=== PATIENT | male | born 1940 | race Caucasian/White ===

== ENCOUNTER 2017-01-20 09:19 | Inpatient (IN) | payer MEDICARE, OTHER ==
[2017-01-20] MEDS ORDERED: NORMAL SALINE MINI-BAG+ 100 ML IV ONE (09:53)
[2017-01-20] MEDS ORDERED: NORMAL SALINE 2,000 ML IV ONE (09:53)
[2017-01-20] MEDS ORDERED: PIPERACILLIN /TAZO 3.375 GM/10 ML VIAL IV ONE (09:53)
[2017-01-20] MEDS ORDERED: ACETAMINOPHEN 325 MG TABLET PO ONE (09:54)
[2017-01-20 09:58] LABS: URINE MUCUS NONE SEEN (Up to 25%); URINE RBC NONE SEEN (0-5/hpf); URINE SQUAMOUS EPITHELIAL CELL NONE SEEN (<= 15/hpf)
[2017-01-20 10:01] LABS: BASOPHILS 0.1 % (0.0-2.0); HEMATOCRIT 47.3 % (42.0-54.0); HEMOGLOBIN 16.6 g/dL (14.0-18.0); LYMPHOCYTES 2.7 % (20.0-40.0); LYMPHOCYTES# 0.6 X 10^3uL (0.8-3.8); MEAN CELL VOLUME 86.9 fL (80.0-100.0); MEAN CORPUS. HGB CONCENTRATION 35.2 g/dL (32.0-36.0); MEAN CORPUSCULAR HEMOGLOBIN 30.5 pg (29.0-35.0); MEAN PLATELET VOLUME 11.3 fL (7.4-10.4); MONOCYTES 6.5 % (2.0-10.0); MONOCYTES# 1.6 X 10^3uL (0.2-1.0); NEUTROPHILS# 21.7 X 10^3uL (2.6-6.7); PLATELET COUNT 198 X 10^3uL (130-440); RED BLOOD COUNT 5.45 X 10^6uL (4.20-6.10); WHITE BLOOD COUNT 23.9 X 10^3uL (3.9-10.7)
[2017-01-20 10:09] LABS: URINE APPEARANCE SLIGHTLY CLOUDY; URINE BILIRUBIN NEGATIVE (NEGATIVE); URINE BLOOD TRACE (NEGATIVE); URINE COLOR YELLOW; URINE GLUCOSE NORMAL (NEGATIVE); URINE KETONE NEGATIVE (NEGATIVE); URINE LEUKOCYTE ESTERASE 25 WBC/uL (1+) (NEGATIVE); URINE NITRITE POSITIVE (NEGATIVE); URINE PROTEIN NEGATIVE (NEG - TRACE); URINE SPECIFIC GRAVITY 1.015 (0.001-1.035); URINE UROBILINOGEN 0.2mg/dL (Normal) (NEG-1mg/dL)
[2017-01-20 10:10] LABS: URINE BACTERIA >50 ORGANISMS/hpf (<10/hpf); URINE WBC 0-4/hpf (0-4/hpf)
[2017-01-20 10:14] LABS: ALBUMIN 4.2 g/dL (3.5-5.0); ALKALINE PHOSPHATASE 71 U/L (38-126); ALT 60 U/L (21-72); AST 46 U/L (17-59); BILIRUBIN, DIRECT 0.2 mg/dL (0.0-0.4); BILIRUBIN, TOTAL 1.2 mg/dL (0.2-1.3); BLOOD UREA NITROGEN 19 mg/dL (9-20); CALCIUM 9.2 mg/dL (8.4-10.2); CHLORIDE 100 mmol/L (98-107); EST GLOMERULAR FILTRATION RATE > 60 mL/min; GLUCOSE 110 mg/dL (70-100); SODIUM 138 mmol/L (137-145); TOTAL PROTEIN 7.4 g/dL (6.3-8.2)
[2017-01-20 10:17] LABS: NEUTROPHILS 90.7 % (54.0-75.0)
[2017-01-20] MEDS ORDERED: ACETAMINOPHEN 325 MG TABLET PO PRN (10:35)
[2017-01-20] MEDS ORDERED: MAG-AL PLUS XS SUSP 30 ML UDC PO PRN (10:35)
[2017-01-20] MEDS ORDERED: POLYETHYLENE GLYCOL 3350 17 GM POWD.PACK PO PRN (10:35)
[2017-01-20] MEDS ORDERED: HOME MEDICATION LIST NEEDED 1 EA EACH MC ONE (10:35)
--- NOTE | 2017-01-20 11:57 | ER PHYSICIAN DOCUMENTATION ---
Physician Documentation [facility] Name:Donaldo Walden Age:76 yrs Sex:Male :1940 Arrival Date:01/20/2017 Time:09:19 BedPortable Radiology Private MD:Tha Morales ED Mathew Gaitan Disposition: 01/20 10:03 Critical Care: not applicable. Chart complete. tl1 Disposition: 01/20/17 10:26 Admit ordered for Tha Morales. Preliminary diagnosis is Urosepsis. - Bed requested for Medical/Surgical. - Condition is Fair. - Problem is new. - Symptoms have improved. 23 HR OBS No HPI: 09:25 This 76 yrs old Male presents to ER with complaints of Altered Mental Status. tl1 09:25 The patient presents with confusion, decreased mental status, disorientation. Onset: tl1 The symptom(s)/episode began/occurred this morning. Possible causes: sepsis. Associated signs and symptoms: Pertinent negatives: abdominal pain, agitation, chest pain, diarrhea, headache, shortness of breath, vomiting. Current symptoms: In the emergency department the patient's symptoms are unchanged from the initial presentation. Patient's baseline: Neuro: alert and fully oriented, Motor: no deficits, Ambulation: walks without assistance, Speech: normal. 09:53 He is a poor historian and unable to describe any symptoms right now. He thinks it is tl1 November, and that the President is [facility]. He does not know the day of the week, and answers only occasional questions, with dubious reliability and consistency. History is mostly from his who says he had chills and felt cold all last night and that he has had UTIs in the past. He denies cough, urinary symptoms,abdominal pain, diarrhea or rash.. Historical: - Allergies: pravastatin; NSAIDS; - Home Meds: 1. Namenda XR 28 mg oral CSpX 1 cap once daily 2. fluocinolone 0.025 % topical oint 2 times per day for Skin Rash 3. tamsulosin 0.4 mg oral cp24 2 caps once daily 1/2 hour following the same meal each day 4. Ambien 5 mg oral tab 1 tab once daily for Sleep-Onset Insomnia 5. fluticasone propionate 6. multivitamin with minerals oral tab 7. ibuprofen 200 mg oral cap 1 cap every 4-6 hours as needed 8. pataday 9. Vitamin B-6 50 mg oral cap 10. calcium carbonate 600 mg oral lozg 11. Fish Oil oral cap 12. aspirin 81 mg oral tab 1 tab once daily - PMHx: erectile dysfunction; BPH; shoulder pain; colon polyps; HERNIA; nonallergic rhinitis; CAD; DEMENTIA; hyperlipidemia; OBESITY; - PSHx: left knee arthroscopy; Ventral Hernia repair; - Tetanus: < 10 years. - Ebola Screening: : Patient negative for fever greater than or equal to 101.5 degrees Fahrenheit, and additional compatible Ebola Virus Disease symptoms. Patient denies exposure to infectious person. Patient denies travel to an Ebola-affected area in the 21 days before illness onset. . - Immunization history: Pneumococcal vaccine is up to date, Flu Vaccine < 1 year. - Social history: Smoking status: Patient states former smoker of tobacco. ROS: 09:59 Constitutional: Positive for chills, fever, malaise. tl1 09:59 Neuro: Positive for altered mental status. 09:59 All other systems are negative. Exam: 10:01 Head/Face: Normocephalic, atraumatic. tl1 Eyes: Pupils equal round and reactive to light, extra-ocular motions intact. Lids and lashes normal. Conjunctiva and sclera are non-icteric and not injected. Cornea within normal limits. Periorbital areas with no swelling, redness, or edema. ENT: Nares patent. No nasal discharge, no septal abnormalities noted. Tympanic membranes are normal and external auditory canals are clear. Oropharynx with no redness, swelling, or masses, exudates, or evidence of obstruction, uvula midline. Mucous membranes moist. Neck: Trachea midline, no thyromegaly or masses palpated, and no cervical lymphadenopathy. Supple, full range of motion without nuchal rigidity, or vertebral point tenderness. No Meningismus. Cardiovascular: Regular rate and rhythm with a normal S1 and S2. No gallops, murmurs, or rubs. Normal PMI, no JVD. No pulse deficits. Respiratory: Lungs have equal breath sounds bilaterally, clear to auscultation and percussion. No rales, rhonchi or wheezes noted. No increased work of breathing, no retractions or nasal flaring. Abdomen/GI: Soft, non-tender, with normal bowel sounds. No distension or tympany. No guarding or rebound. No evidence of tenderness throughout. Skin: Warm, dry with normal turgor. Normal color with no rashes, no lesions, and no evidence of cellulitis. 10:01 MS/ Extremity: Pulses equal, no cyanosis. Neurovascular intact. Full, normal range tl1 of motion. 10:01 Constitutional: The patient appears in no acute distress, alert, awake, comfortable, non-toxic, well developed, well hydrated, well groomed, well nourished, incontinent of urine. 10:01 Neuro: Orientation: to person, Not oriented to place, time, situation, Mentation: slow to respond, Memory: immediate memory is impaired, Cranial nerves: grossly normal, Motor: moves all fours. 10:01 Psych: Behavior/mood is pleasant, cooperative, Affect is flat, Judgement / Insight is impaired. Recent memory is impaired. Vital Signs: 09:19 BP 143 / 70; Pulse 77; Resp 16; Temp 99.6(O); Pulse Ox 93% on R/A; Weight 99.79 kg; lp Height 70 in. (177.80 cm); Pain 0/10; 09:32 BP 132 / 65; Pulse 73; Resp 16; Pulse Ox 90% on R/A; lp 10:33 BP 104 / 64; Pulse 76; Resp 16; Pulse Ox 95% on R/A; lp 10:33 BP 104 / 64 (auto/); lp 10:34 Pulse 78 MON; Resp 24; Pulse Ox 95% ; lp 10:41 Temp 99.1(TE); lp 11:00 BP 112 / 59 (auto/); lp 11:04 Pulse 75 MON; Resp 24; Pulse Ox 95% ; lp 11:34 Pulse 71 MON; Resp 19; Pulse Ox 95% ; lp 11:37 BP 94 / 42 (auto/); lp 09:19 Body Mass Index 31.57 (99.79 kg, 177.80 cm) lp 11:37 MD notified lp MDM: 09:24 Patient medically screened. tl1 10:26 Data reviewed: and as a result, I will admit patient. Counseling: I had a detailed tl1 discussion with the patient and/or guardian regarding: the historical points, exam findings, and any diagnostic results supporting the discharge/admit diagnosis, lab results, radiology results, the need for further work-up and treatment in the hospital. ECG:. 10:42 EKG attached lp 01/20 10:10 Order name: UA W/ MICRO -CULTURE IF IND; Complete Time: 11:40 EDWY 01/20 10:32 Interpretation: Abnormal: URINE LEUKOCYTE ESTERASE 25 WBC/uL (1+); URINE NITRITE tl1 POSITIVE; URINE BLOOD TRACE. 01/20 10:18 Order name: CBC AUTO DIF, MDIF/RMOR IF IND; Complete Time: 11:40 EDWY 01/20 10:32 Interpretation: WHITE BLOOD COUNT 23.9; HEMOGLOBIN 16.6; HEMATOCRIT 47.3; MEAN PLATELET tl1 VOLUME 11.3; NEUTROPHILS 90.7; LYMPHOCYTES 2.7. 01/20 10:24 Order name: BASIC METABOLIC PANEL; Complete Time: 11:40 EDWY 01/20 10:33 Interpretation: Normal: SODIUM 138; POTASSIUM 4.0; CHLORIDE 100; CARBON DIOXIDE 26; tl1 GLUCOSE 110; BLOOD UREA NITROGEN 19; CREATININE 1.0. 01/20 10:24 Order name: HEPATIC PANEL; Complete Time: 11:40 EDWY 01/20 10:33 Interpretation: Normal: ALT 60; ALBUMIN 4.2; ALKALINE PHOSPHATASE 71; AST 46; tl1 BILIRUBIN, TOTAL 1.2; BILIRUBIN, DIRECT 0.2; TOTAL PROTEIN 7.4. 01/20 10:24 Order name: BNP,NT-PRO; Complete Time: 11:40 EDWY 01/20 10:33 Interpretation: Abnormal: BNP,NT-PRO 745. tl1 01/20 10:34 Order name: LACTATE; Complete Time: 11:41 EDWY 01/21 06:06 Order name: CBC AUTO DIF, MDIF/RMOR IF IND EDWY 01/21 06:14 Order name: BASIC METABOLIC PANEL EDWY 01/21 07:21 Order name: URINE CULTURE EDWY 01/21 10:21 Order name: BLOOD CULTURE EDWY 01/21 10:21 Order name: BLOOD CULTURE EDWY 01/22 06:54 Order name: UA W/ MICRO -CULTURE IF IND EDWY 01/22 08:53 Order name: NEGATIVE SENSITIVITY PANEL EDWY 01/20 09:58 Order name: CHEST; SINGLE VIEW [id number] EDWY 01/20 21:32 Order name: CHEST; SINGLE VIEW [id number] EDWY 01/20 09:27 Order name: I & O; Complete Time: :39 tl1 01/20 09:27 Order name: IV large bore X 2; Complete Time: :39 tl1 01/20 09:27 Order name: NPO; Complete Time: :39 tl1 01/20 09:27 Order name: Oxygen; Complete Time: :39 tl1 01/20 09:27 Order name: Place Patient On Monitor; Complete Time: :39 tl1 01/20 09:27 Order name: Pulse Ox Continuous; Complete Time: : tl1 01/20 09:27 Order name: 12-lead EKG; Complete Time: :52 tl1 EC:48 Rate is 74 beats/min. Rhythm is regular, Normal Sinus Rhythm. QRS [place] is Normal. QRS tl1 is negative in leads III, aVF, V1, V2. [place] interval is normal at 172 msec. QRS interval is prolonged at 105 msec. QT interval is normal at 387 msec. No Q waves. T waves are Normal. No ST changes noted. Clinical impression: NSR with borderline LAD, and RSR' in V1, V2 c/w right VCD or RVH. Interpreted by me. Reviewed by me. Dispensed Medications: : Drug: NS 0.9% 2000 ml; Route: IV; Rate: bolus; Site: left antecubital; lp 11:28 Follow up: Response: No adverse reaction; No change in condition; IV Status: Completed lp infusion; IV Intake: 2000ml 10:00 Drug: Acetaminophen 975 mg; Route: PO; lp 10:40 Follow up: Response: No adverse reaction; Temperature is decreased lp 10:20 Drug: Zosyn 3.375 grams; Route: IVPB; Site: left antecubital; lp 10:41 Follow up: Response: No adverse reaction; No change in condition; IV Status: Completed lp infusion; IV Intake: 100ml Point of Care Testing: Urine Dip: :52 pH: 6.5; ; Specific [place]: 1.020; Ketones: Negative; Glucose: Negative; Protein: lp Negative; Leukocytes: Positive; Nitrite: Positive (+) ; Blood: Non Hemolyzed Trace; Bilirubin: Negative ; Urobilinogen: Normal Signatures: Margo Robbins RN RN lp Leigh, Tom, MD MD tl1
--- NOTE | 2017-01-20 11:57 | ER NURSING DOCUMENTATION ---
Nurse's Notes [facility] Name:Donaldo Walden Age:76 yrs Sex:Male :1940 Ar[facility] Date:01/20/2017 [facility]09[facility] MD:Tha Morales Diagnosis:Urosepsis Presentation: 01/20 09:19 Notified ED Physician of Dr. Knapp notified. lp 09:21 Acuity: KYLIE 2 tg 09:55 Presenting complaint: Patient states: states patient is more confused and has been lp weak and incontinent of urine which is not baseline for patient. Transition of care: Home. 09:55 Method Of Arrival: EMS: 410 lp Triage Assessment: 09:50 General: Appears in no apparent distress, Behavior is appropriate for age, confused. lp Pain: Denies pain. EENT: No deficits noted. Neuro: No deficits noted. Level of Consciousness is awake, alert, confused, Oriented to person, Line Ordering Clinician are equal bilaterally Moves all extremities. Gait is unsteady. Cardiovascular: Capillary refill < 3 seconds Heart tones S1 S2. Respiratory: Airway is patent Breath sounds are clear bilaterally. GI: Abdomen is obese, Bowel sounds present X 4 quads. : Urine is cloudy. Derm: Skin is intact, is healthy with good turgor, Skin is dry, Skin is pink, Skin temperature is warm. Musculoskeletal: No deficits noted. Historical: - Allergies: pravastatin; NSAIDS; - Home Meds: 1. Namenda XR 28 mg oral CSpX 1 cap once daily 2. fluocinolone 0.025 % topical oint 2 times per day for Skin Rash 3. tamsulosin 0.4 mg oral cp24 2 caps once daily 1/2 hour following the same meal each day 4. Ambien 5 mg oral tab 1 tab once daily for Sleep-Onset Insomnia 5. fluticasone propionate 6. multivitamin with minerals oral tab 7. ibuprofen 200 mg oral cap 1 cap every 4-6 hours as needed 8. pataday 9. Vitamin B-6 50 mg oral cap 10. calcium carbonate 600 mg oral lozg 11. Fish Oil oral cap 12. aspirin 81 mg oral tab 1 tab once daily - PMHx: erectile dysfunction; BPH; shoulder pain; colon polyps; HERNIA; nonallergic rhinitis; CAD; DEMENTIA; hyperlipidemia; OBESITY; - PSHx: left knee arthroscopy; Ventral Hernia repair; - Tetanus: < 10 years. - Ebola Screening: : Patient negative for fever greater than or equal to 101.5 degrees Fahrenheit, and additional compatible Ebola Virus Disease symptoms. Patient denies exposure to infectious person. Patient denies travel to an Ebola-affected area in the 21 days before illness onset. . - Immunization history: Pneumococcal vaccine is up to date, Flu Vaccine < 1 year. - Social history: Smoking status: Patient states former smoker of tobacco. Screenin:27 Infectious Disease Risk None. Abuse screen: Denies threats or abuse. Denies injuries lp from another. Nutritional screening: No deficits noted. Assessment: 10:27 See Triage Assessment done by same RN. lp Vital Signs: 09:19 BP 143 / 70; Pulse 77; Resp 16; Temp 99.6(O); Pulse Ox 93% on R/A; Weight 99.79 kg; lp Height 70 in. (177.80 cm); Pain 0/10; 09:32 BP 132 / 65; Pulse 73; Resp 16; Pulse Ox 90% on R/A; lp 10:33 BP 104 / 64; Pulse 76; Resp 16; Pulse Ox 95% on R/A; lp 10:33 BP 104 / 64 (auto/); lp 10:34 Pulse 78 MON; Resp 24; Pulse Ox 95% ; lp 10:41 Temp 99.1(TE); lp 11:00 BP 112 / 59 (auto/); lp 11:04 Pulse 75 MON; Resp 24; Pulse Ox 95% ; lp 11:34 Pulse 71 MON; Resp 19; Pulse Ox 95% ; lp 11:37 BP 94 / 42 (auto/); lp 09:19 Body Mass Index 31.57 (99.79 kg, 177.80 cm) lp 11:37 MD notified lp ED Course: 09:20 Patient arrived in ED. natalya 09:21 Triage completed. tg 09:21 Margo Robbins, ARNOLD is Primary Nurse. lp 09:24 Mathew Knapp MD is Attending Physician. tl1 09:24 Tha Morales MD is Private Physician. natalya 09:50 Valuables Remains with patient Patient has correct armband on for positive lp identification. Placed in gown. Bed in low position. Call light in reach. Side rails up X 1. Adult w/ patient. Cardiac Monitoring On for Nurse Monitoring only. Pulse Ox - RN Monitoring Only NIBP On - RN Monitoring Only. Warm blanket given. Assisted with urinal. Cleaned of incontinence. 09:52 Missed attempts: 20 gauge X 2 in right antecubital area, Bleeding controlled, band aid tg applied, catheter tip intact. 09:58 CHEST; SINGLE VIEW [id number] In Process Unspecified. EDMS 10:03 Tha Morales MD is Admitting Physician. tl1 10:39 Inserted peripheral IV: 18 gauge in left antecubital area By EMS. lp 10:39 Inserted peripheral IV: 20 gauge in right forearm. lp 10:42 EKG attached lp Administered Medications: 09:52 Drug: NS 0.9% 2000 ml; Route: IV; Rate: bolus; Site: left antecubital; lp 11:28 Follow up: Response: No adverse reaction; No change in condition; IV Status: Completed lp infusion; IV Intake: 2000ml 10:00 Drug: Acetaminophen 975 mg; Route: PO; lp 10:40 Follow up: Response: No adverse reaction; Temperature is decreased lp 10:20 Drug: Zosyn 3.375 grams; Route: IVPB; Site: left antecubital; lp 10:41 Follow up: Response: No adverse reaction; No change in condition; IV Status: Completed lp infusion; IV Intake: 100ml Point of Care Testing: Urine Dip: 09:52 pH: 6.5; ; Specific [place]: 1.020; Ketones: Negative; Glucose: Negative; Protein: lp Negative; Leukocytes: Positive; Nitrite: Positive (+) ; Blood: Non Hemolyzed Trace; Bilirubin: Negative ; Urobilinogen: Normal Intake: 10:41 IV: 100ml; Total: 100ml. lp 11:28 IV: 2000ml; Total: 2100ml. lp Outcome: 10:26 Decision to Admit by Provider. tl1 11:55 Admitted to Med/surg accompanied by nurse, Other Report to Dre BARRETT lp 11:55 Condition: stable 11:55 Report given to Dre BARRETT on med-surg 11:55 Instructed on need to admit 11:56 Patient left the ED. lp Signatures: Dispatcher [facility] EDKY Phan Rodriguez RN RN tg Pavlish, Lena, RN RN lp Davies, Jackie, Reg Reg jd Abbott, Laura lea Leigh, Tom, [place] tl1
[2017-01-20] MEDS: NORMAL SALINE 1,000 ML IV SCH ×2 (12:15→17:30)
[2017-01-20] MEDS ORDERED: PIPERACILLIN /TAZO 2.25 GM/10 ML VIAL IV SCH (16:00)
[2017-01-20] MEDS: PIPERACILLIN /TAZO 3.375 GM in NORMAL SALINE MINI-BAG+ 100 ML IV SCH ×2 (16:12→21:49)
[2017-01-20] MEDS: IBUPROFEN 200 MG TABLET PO SCH ×2 (17:32→22:38)
--- NOTE | 2017-01-20 18:14 | RADIOLOGY REPORT ---
A limited single portable view of the chest is compared with prior examination dated 07/25/2011. The cardiac silhouette is enlarged but stable. The pulmonary vasculature is unremarkable. The lung titus are clear. IMPRESSION: Stable mild enlargement of the cardiac silhouette. MTDD
--- NOTE | 2017-01-20 18:14 | HISTORY & PHYSICAL ---
DATE OF ADMISSION: 01/20/17 ATTENDING PHYSICIAN: Tha Morales MD CHIEF COMPLAINT: Urinary tract infection. HISTORY OF PRESENT ILLNESS: Patient presented to the Emergency Room with a 1- day history of urinary tract symptoms consisting of dysuria, urinary frequency, nocturia that has increased from twice a night to 4 times per night, urgency, hesitancy, fevers, chills and dizziness. This morning, he felt quite weak trying to get out of bed and was noted to be quite confused according to his . No flank pain or abdominal pain. No nausea, vomiting, diarrhea, constipation, melena, hematochezia or cardiopulmonary symptoms. ALLERGIES: Pravastatin (myalgias). MEDICATIONS Namenda XR 28 mg p.o. daily. Fluocinolone 0.025% cream b.i.d. PRN. Ibuprofen 400 mg p.o. b.i.d. Fish oil 1000 mg p.o. daily. Cranberry 1 tab p.o. daily. Calcium carbonate 600 mg with vitamin D 400 International Units 2 tabs p.o. daily. Vitamin B6 1 tab p.o. daily. Pataday ophthalmic 1 gtt OU daily. Multivitamin 1 tab p.o. daily. Tamsulosin 0.4 mg 2 tabs p.o. daily. Ambien 5 mg p.o. q.h.s. PRN sleep. Fluticasone nasal inhaler 2 sprays each nostril daily. Aspirin 81 mg p.o. daily. PAST MEDICAL HISTORY 1. Bilateral hand dupuytrens contractures. 2. Ventral hernia repair 2013.. 3. Coronary artery disease diagnosed 2012 at time of a non-Q-wave myocardial infarction as noted on stress echocardiogram and nuclear stress test and followed by Physical Meteorologist Dr. Long. 4. Hyperlipidemia. 5. Colon polyps. 6. Dementia with last Mini-Mental Status Exam in 2009. 7. Benign prostatic hypertrophy. 8. Nonallergic rhinitis. 9. Obesity. 10. Hearings aids. 11. Erectile dysfunction. 12. Bilateral rotator cuff tear arthropathy 2013. 13. Left knee surgery 1971. 14. Left thigh injury surgery 1963. SOCIAL HISTORY: 2 children. 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 Quit smoking 1971. Social alcohol. FAMILY HISTORY: Mother at 101 of old age. Father at 72 of a bleeding esophageal ulcer. Brother at 42 of pneumonia secondary to a spinal cord tumor surgery. REVIEW OF SYSTEMS: No chest pain, chest pressure, chest tightness or other anginal symptoms. No lung, kidney stones or infections, liver, diabetes, thyroid , seizures, peptic ulcer disease, hypertension, skin, allergy or bleeding disorders. Nocturia x2 normally, but currently x4. PREVENTATIVE HEALTH: Pneumovax 2004. Prevnar 2014. Flu shot 06/22/16. PHYSICAL EXAMINATION VITAL SIGNS: Blood pressure 143/70, pulse 77, respiratory rate 16. Temperature 99.6. Room air pulse oxygen 93% on admission to the Emergency Room. GENERAL: Well-developed, well-nourished overweight male, NAD, alert and oriented x3. At the time of my exam he was not particularly confused, but he was quite confused per the ER physician. HEENT: EOMI. PERRLA. Normal conjunctivae. No coryza. Pharynx not injected. NECK: No lymphadenopathy. No thyromegaly. No carotid bruits. Neck supple. CHEST: Clear. No rales, rhonchi or wheezes. Good breath sounds and symmetry throughout. COR: RRR without murmurs, gallops, rubs or clicks. No jugular venous distention. No ectopy. ABDOMEN: Soft, nontender. No kidney tenderness. No hepatosplenomegaly. No masses. No bruits. No inguinal nodes. Bowel sounds present. No suprapubic tenderness on palpation. BACK: No CVA tenderness on percussion. LOWER EXTREMITIES: No edema. Good peripheral pulses. NEUROLOGIC: Nonfocal with good motor strength and normal cranial nerves. LABORATORY DATA: White blood cell count 23.9 with machine differential 90.7 neutrophils, 2.7% lymphocytes. Hemoglobin and hematocrit 16.6/47.3, platelets 198,000. Sodium 138, potassium 4.0, chloride 100, CO2 26, BUN 19, creatinine 1.0 , glucose 110, lactic acid 1.6, calcium 9.2, total bilirubin 1.2, direct bilirubin 0.2. AST 46, ALT 60, alkaline phosphatase 71. Pro-BNP 745, total protein 7.4, albumin 4.2. Urinalysis with specific gravity of 1.015, slightly cloudy, trace blood, positive nitrate, 1+ leukocyte esterase. Micro no RBC or WBCs, greater than 50 bacteria. ASSESSMENT: Urosepsis. PLAN 1. Zosyn 3.375 gram IV q.6 hours. 2. IV hydration with normal saline at 125 mL per hour. 3. Blood and urine cultures pending. 4. Recheck lab work in a.m. 5. Full code. MTDD
[2017-01-20] MEDS ORDERED: IBUPROFEN 400 MG TABLET PO SCH (21:00)
[2017-01-20] MEDS: ZOLPIDEM TARTRATE 5 MG TABLET PO SCH (21:10)
[2017-01-21] MEDS: NORMAL SALINE 1,000 ML IV SCH ×3 (02:00→15:13)
[2017-01-21] MEDS: PIPERACILLIN /TAZO 3.375 GM in NORMAL SALINE MINI-BAG+ 100 ML IV SCH ×4 (04:11→21:58)
[2017-01-21] MEDS: IBUPROFEN 200 MG TABLET PO SCH ×4 (05:38→22:04)
[2017-01-21 06:02] LABS: BASOPHIL# 0.1 X 10^3uL (0.0-0.1); BASOPHILS 0.7 % (0.0-2.0); EOSINOPHILS 0.8 % (0.0-6.0); EOSINOPHILS# 0.1 X 10^3uL (0.0-0.4); HEMATOCRIT 45.5 % (42.0-54.0); HEMOGLOBIN 14.6 g/dL (14.0-18.0); LYMPHOCYTES 5.1 % (20.0-40.0); LYMPHOCYTES# 0.9 X 10^3uL (0.8-3.8); MEAN CELL VOLUME 89.8 fL (80.0-100.0); MEAN CORPUS. HGB CONCENTRATION 32.1 g/dL (32.0-36.0); MEAN CORPUSCULAR HEMOGLOBIN 28.8 pg (29.0-35.0); MEAN PLATELET VOLUME 9.6 fL (7.4-10.4); MONOCYTES 7.1 % (2.0-10.0); MONOCYTES# 1.3 X 10^3uL (0.2-1.0); NEUTROPHILS# 15.5 X 10^3uL (2.6-6.7); PLATELET COUNT 140 X 10^3uL (130-440); RED BLOOD COUNT 5.07 X 10^6uL (4.20-6.10); RED CELL DISTRIBUTION WIDTH 14.5 % (11.5-14.5)
[2017-01-21 06:05] LABS: NEUTROPHILS 86.3 % (54.0-75.0); WHITE BLOOD COUNT 17.9 X 10^3uL (3.9-10.7)
[2017-01-21 06:10] LABS: BLOOD UREA NITROGEN 14 mg/dL (9-20); CALCIUM 8.2 mg/dL (8.4-10.2); CHLORIDE 110 mmol/L (98-107); CREATININE 0.9 mg/dL (0.7-1.3); EST GLOMERULAR FILTRATION RATE > 60 mL/min; GLUCOSE 115 mg/dL (70-100); POTASSIUM 3.7 mmol/L (3.5-5.1); SODIUM 141 mmol/L (137-145)
[2017-01-21] MEDS: MEMANTINE HCL XR 28 MG CAP PO SCH (08:36)
[2017-01-21] MEDS: TAMSULOSIN HCL 0.4 MG CAPSULE PO SCH (08:36)
[2017-01-21] MEDS: MULTIVITAMINS THERAPEUTIC 1 TABLET PO SCH (08:36)
[2017-01-21] MEDS ORDERED: POLYVINYL ALCOHOL 1.4% OPHTH 75 DROP/15 ML BTL OPHTHALMIC PRN (08:49)
--- NOTE | 2017-01-21 08:56 | PROGRESS NOTE: IM SOAP ---
IM: PN Subjective Interval history: Feeling better. Did have some intermittent confusion last night. No dysuria, frequency, flank pain. No chills. IM: PN Objective Exam - I&O/Vital Signs I&O: Intake & Output 01/20/17 01/21/17 01/21/17 21:59 05:59 13:59 Intake Total 1384 1225 Output Total 275 675 Balance 1109 550 Weight 100 kg Intake: IV 1084 1075 Left Antecubital 1084 1075 Oral 300 150 Output: Urine 275 675 Other: Urine Appearance Cloudy Cloudy Urine Color Straw Straw Stool Size Small Stool Characteristics Hard Voiding Method Toilet Toilet # Voids 3 1 # Bowel Movements 1 Vital Signs: Last Vital Signs Temp 36.3 C L 01/21/17 06:00 Pulse 54 L 01/21/17 06:00 Resp 20 01/21/17 06:00 BP 109/54 01/21/17 06:00 Pulse Ox 95 01/21/17 06:00 Oxygen Delivery Method Room Air - Respiratory Respiratory exam: Present: clear. Absent: rales - Cardiovascular Cardiovascular exam: Present: RRR. Absent: systolic murmur - GI/Abdominal GI/Abdominal exam: Present: normal bowel sounds, soft, other (No CVATon percussion.). Absent: organomegaly, tenderness - Extremities Exam Extremities exam: Absent: edema - Lab Labs: Laboratory Last Values WBC 17.9 X 10^3uL (3.9-10.7) H 01/21/17 05:50 RBC 5.07 X 10^6uL (4.20-6.10) 01/21/17 05:50 Hgb 14.6 g/dL (14.0-18.0) 01/21/17 05:50 Hct 45.5 % (42.0-54.0) 01/21/17 05:50 MCV 89.8 fL (80.0-100.0) 01/21/17 05:50 MCH 28.8 pg (29.0-35.0) L 01/21/17 05:50 MCHC 32.1 g/dL (32.0-36.0) 01/21/17 05:50 RDW 14.5 % (11.5-14.5) 01/21/17 05:50 Plt Count 140 X 10^3uL (130-440) 01/21/17 05:50 MPV 9.6 fL (7.4-10.4) 01/21/17 05:50 Neutrophils % 86.3 % (54.0-75.0) H 01/21/17 05:50 Lymphocytes % 5.1 % (20.0-40.0) L 01/21/17 05:50 Eosinophils % 0.8 % (0.0-6.0) 01/21/17 05:50 Basophils % 0.7 % (0.0-2.0) 01/21/17 05:50 Neutrophils # 15.5 X 10^3uL (2.6-6.7) H 01/21/17 05:50 Lymphocytes # 0.9 X 10^3uL (0.8-3.8) 01/21/17 05:50 Monocytes 7.1 % (2.0-10.0) 01/21/17 05:50 Monocytes # 1.3 X 10^3uL (0.2-1.0) H 01/21/17 05:50 Eosinophils # 0.1 X 10^3uL (0.0-0.4) 01/21/17 05:50 Basophils # 0.1 X 10^3uL (0.0-0.1) 01/21/17 05:50 Sodium 141 mmol/L (137-145) 01/21/17 05:50 Potassium 3.7 mmol/L (3.5-5.1) 01/21/17 05:50 Chloride 110 mmol/L (98-107) H 01/21/17 05:50 Carbon Dioxide 23 mmol/L (22-30) 01/21/17 05:50 BUN 14 mg/dL (9-20) 01/21/17 05:50 Creatinine 0.9 mg/dL (0.7-1.3) 01/21/17 05:50 GFR Calculation > 60 mL/min 01/21/17 05:50 Glucose 115 mg/dL (70-100) H 01/21/17 05:50 Lactic Acid 1.6 mmol/L (0.7-2.1) 01/20/17 10:15 Calcium 8.2 mg/dL (8.4-10.2) L 01/21/17 05:50 Total Bilirubin 1.2 mg/dL (0.2-1.3) 01/20/17 09:30 Direct Bilirubin 0.2 mg/dL (0.0-0.4) 01/20/17 09:30 AST 46 U/L (17-59) 01/20/17 09:30 ALT 60 U/L (21-72) 01/20/17 09:30 Alkaline Phosphatase 71 U/L (38-126) 01/20/17 09:30 NT-Pro-B Natriuret Pep 745 pg/mL (<450) H 01/20/17 09:30 Total Protein 7.4 g/dL (6.3-8.2) 01/20/17:30 Albumin 4.2 g/dL (3.5-5.0) 01/20/17:30 Urine Color Yellow 01/20/17:30 Urine Appearance Slightly cloudy 01/20/17:30 Urine pH 6.0 (5-7) 01/20/17:30 Ur Specific [place] 1.015 (0.001-1.035) 01/20/17:30 Urine Protein Negative (NEG - TRACE) 01/20/17: Urine Ketones Negative (NEGATIVE) 01/20/17: Urine Blood Trace (NEGATIVE) A 01/20/17: Urine Nitrate Positive (NEGATIVE) A 01/20/17:30 Urine Bilirubin Negative (NEGATIVE) 01/20/17: Urine Urobilinogen 0.2mg/dl (normal) (NEG-1mg/dL) 01/20/17:30 Ur Leukocyte Esterase 25 wbc/ul (1+) (NEGATIVE) A 01/20/17:30 Urine RBC None seen (0-5/hpf) 01/20/17:30 Urine WBC 0-4/hpf (0-4/hpf) 01/20/17:30 Ur Squamous Epith Cells None seen (<= 15/hpf) 01/20/17:30 Urine Bacteria >50 organisms/hpf (<10/hpf) 01/20/17:30 Urine Mucus None seen (Up to 25%) 01/20/17 09:30 Urine Glucose Normal (NEGATIVE) 01/20/17 09:30 Assessment and Plan - Date of Encounter Date of Encounter: 01/21/17 (1) Sepsis secondary to UTI Status: Acute Assessment and plan: Improving Zosyn IV hydration Current Visit: Yes - Time Spent With Patient Total time spent with greater than 50% in coordination of care (as documented) at patient's floor/unit and/or counseling patient: Quality Questions - VTE Prophylaxis Assessment VTE Present on Admission?: No Patient at risk for venous thromboembolism?: No VTE Risk Level: Low Risk Pharmaceutical VTE prophylaxis contraindication reason: not indicated
[2017-01-21] MEDS ORDERED: MULTIVITAMINS THERAPEUTIC 1 TABLET PO SCH (09:00)
[2017-01-21] MEDS ORDERED: MEMANTINE HCL 28 MG PO SCH (09:00)
[2017-01-21] MEDS ORDERED: PYRIDOXINE HCL 50 MG PO SCH (09:00)
[2017-01-21] MEDS ORDERED: OLOPATADINE HCL EACHEYE SCH (09:00)
[2017-01-21] MEDS: ZOLPIDEM TARTRATE 5 MG TABLET PO SCH (21:58)
[2017-01-22] MEDS: PHENAZOPYRIDINE 100 MG TABLET PO SCH ×2 (02:47→08:18)
[2017-01-22] MEDS: IBUPROFEN 200 MG TABLET PO SCH ×2 (05:08→11:13)
[2017-01-22] MEDS: PIPERACILLIN /TAZO 3.375 GM in NORMAL SALINE MINI-BAG+ 100 ML IV SCH ×2 (05:09→11:12)
[2017-01-22] MEDS: NORMAL SALINE 1,000 ML IV SCH (05:40)
[2017-01-22 06:44] LABS: URINE MUCUS NONE SEEN (Up to 25%); URINE SQUAMOUS EPITHELIAL CELL NONE SEEN (<= 15/hpf); URINE WBC NONE SEEN (0-4/hpf)
[2017-01-22 06:52] LABS: URINE APPEARANCE CLEAR; URINE BILIRUBIN NEGATIVE (NEGATIVE); URINE BLOOD NEGATIVE (NEGATIVE); URINE COLOR DARK YELLOW; URINE GLUCOSE NORMAL (NEGATIVE); URINE KETONE NEGATIVE (NEGATIVE); URINE LEUKOCYTE ESTERASE NEGATIVE (NEGATIVE); URINE NITRITE POSITIVE (NEGATIVE); URINE PROTEIN NEGATIVE (NEG - TRACE); URINE SPECIFIC GRAVITY < or = 1.005 (0.001-1.035); URINE UROBILINOGEN 0.2mg/dL (Normal) (NEG-1mg/dL)
[2017-01-22] MEDS: MEMANTINE HCL XR 28 MG CAP PO SCH (08:18)
[2017-01-22] MEDS: MULTIVITAMINS THERAPEUTIC 1 TABLET PO SCH (08:18)
[2017-01-22] MEDS: TAMSULOSIN HCL 0.4 MG CAPSULE PO SCH (08:18)
[2017-01-22 13:10] VITALS: BP 138/60; PULSE 70; RESP 18; TEMP 98; O2SAT 94
--- NOTE | 2017-01-22 13:19 | PROGRESS NOTE: IM SOAP ---
IM: PN Subjective Interval history: Feeling better. No confusion. No dysuria, frequency, flank pain. No chills. Urinary retention with 560 and >500 last night. Holguin was placed. Pt has hx of urinary retention since 2006, for which he has seen Dr Alicia. IM: PN Objective Exam - I&O/Vital Signs I&O: Intake & Output 01/21/17 01/22/17 01/22/17 21:59 05:59 13:59 Intake Total 3041 1185 Output Total 1450 1485 1050 Balance 1591 -300 -1050 Weight 101 kg Intake: IV 1391 735 Left Antecubital 1391 735 Oral 1650 450 Output: Urine 1450 1485 1050 Uretheral (Holguin) 1050 Other: Urine Appearance Clear Clear Clear Urine Color Yellow Yellow Yellow Uretheral (Holguin) [place] Stool Size Moderate Moderate Stool Characteristics Soft Soft Liquid Liquid Brown Brown Voiding Method Toilet Toilet Toilet # Voids 8 6 # Bowel Movements 4 Vital Signs: Last Vital Signs Temp 36.6 C 01/22/17 11:00 Pulse 70 01/22/17 11:00 Resp 18 01/22/17 11:00 BP 138/60 01/22/17 11:00 Pulse Ox 94 01/22/17 11:00 Oxygen Delivery Method Room Air - Respiratory Respiratory exam: Present: clear. Absent: rales - Cardiovascular Cardiovascular exam: Present: RRR. Absent: systolic murmur - GI/Abdominal GI/Abdominal exam: Present: normal bowel sounds, soft, other (No CVAT on percussion.). Absent: organomegaly, tenderness - Extremities Exam Extremities exam: Absent: edema - Lab Labs: Laboratory Last Values WBC 17.9 X 10^3uL (3.9-10.7) H 01/21/17 05:50 RBC 5.07 X 10^6uL (4.20-6.10) 01/21/17 05:50 Hgb 14.6 g/dL (14.0-18.0) 01/21/17 05:50 Hct 45.5 % (42.0-54.0) 01/21/17 05:50 MCV 89.8 fL (80.0-100.0) 01/21/17 05:50 MCH 28.8 pg (29.0-35.0) L 01/21/17 05:50 MCHC 32.1 g/dL (32.0-36.0) 01/21/17 05:50 RDW 14.5 % (11.5-14.5) 01/21/17 05:50 Plt Count 140 X 10^3uL (130-440) 01/21/17 05:50 MPV 9.6 fL (7.4-10.4) 01/21/17 05:50 Neutrophils % 86.3 % (54.0-75.0) H 01/21/17 05:50 Lymphocytes % 5.1 % (20.0-40.0) L 01/21/17 05:50 Eosinophils % 0.8 % (0.0-6.0) 01/21/17 05:50 Basophils % 0.7 % (0.0-2.0) 01/21/17 05:50 Neutrophils # 15.5 X 10^3uL (2.6-6.7) H 01/21/17 05:50 Lymphocytes # 0.9 X 10^3uL (0.8-3.8) 01/21/17 05:50 Monocytes 7.1 % (2.0-10.0) 01/21/17 05:50 Monocytes # 1.3 X 10^3uL (0.2-1.0) H 01/21/17 05:50 Eosinophils # 0.1 X 10^3uL (0.0-0.4) 01/21/17 05:50 Basophils # 0.1 X 10^3uL (0.0-0.1) 01/21/17 05:50 Sodium 141 mmol/L (137-145) 01/21/17 05:50 Potassium 3.7 mmol/L (3.5-5.1) 01/21/17 05:50 Chloride 110 mmol/L (98-107) H 01/21/17 05:50 Carbon Dioxide 23 mmol/L (22-30) 01/21/17 05:50 BUN 14 mg/dL (9-20) 01/21/17 05:50 Creatinine 0.9 mg/dL (0.7-1.3) 01/21/17 05:50 GFR Calculation > 60 mL/min 01/21/17 05:50 Glucose 115 mg/dL (70-100) H 01/21/17 05:50 Lactic Acid 1.6 mmol/L (0.7-2.1) 01/20/17 10:15 Calcium 8.2 mg/dL (8.4-10.2) L 01/21/17 05:50 Total Bilirubin 1.2 mg/dL (0.2-1.3) 01/20/17 09:30 Direct Bilirubin 0.2 mg/dL (0.0-0.4) 01/20/17 09:30 AST 46 U/L (17-59) 01/20/17 09:30 ALT 60 U/L (21-72) 01/20/17 09:30 Alkaline Phosphatase 71 U/L (38-126) 01/20/17 09:30 NT-Pro-B Natriuret Pep 745 pg/mL (<450) H 01/20/17 09:30 Total Protein 7.4 g/dL (6.3-8.2) 01/20/17 09:30 Albumin 4.2 g/dL (3.5-5.0) 01/20/17 09:30 Urine Color Dark yellow A 01/22/17 06:40 Urine Appearance Clear 01/22/17 06:40 Urine pH 5.0 (5-7) 01/22/17 06:40 Ur Specific [place] < or = 1.005 (0.001-1.035) 01/22/17 06:40 Urine Protein Negative (NEG - TRACE) 01/22/17 06:40 Urine Ketones Negative (NEGATIVE) 01/22/17 06:40 Urine Blood Negative (NEGATIVE) 01/22/17 06:40 Urine Nitrate Positive (NEGATIVE) A 01/22/17 06:40 Urine Bilirubin Negative (NEGATIVE) 01/22/17 06:40 Urine Urobilinogen 0.2mg/dl (normal) (NEG-1mg/dL) 01/22/17 06:40 Ur Leukocyte Esterase Negative (NEGATIVE) 01/22/17 06:40 Urine RBC 5-10/hpf (0-5/hpf) 01/22/17 06:40 Urine WBC None seen (0-4/hpf) 01/22/17 06:40 Ur Squamous Epith Cells None seen (<= 15/hpf) 01/22/17 06:40 Urine Bacteria 20-50 organisms/hpf (<10/hpf) 01/22/17 06:40 Urine Mucus None seen (Up to 25%) 01/22/17 06:40 Urine Glucose Normal (NEGATIVE) 01/22/17 06:40 Assessment and Plan - Date of Encounter Date of Encounter: 01/22/17 (1) Sepsis secondary to UTI Status: Acute Assessment and plan: Improving Zosyn IV hydration D/C home soon Current Visit: Yes (2) Urinary retention Status: Acute Assessment and plan: Holguin Referral to Dr Ravin Couch. Start Proscar. Current Visit: Yes - Time Spent With Patient Total time spent with greater than 50% in coordination of care (as documented) at patient's floor/unit and/or counseling patient:
[2017-01-22 13:29] LABS: HEMATOCRIT 41.6 % (42.0-54.0); HEMOGLOBIN 14.3 g/dL (14.0-18.0); MEAN CELL VOLUME 88.2 fL (80.0-100.0); MEAN CORPUS. HGB CONCENTRATION 34.4 g/dL (32.0-36.0); MEAN CORPUSCULAR HEMOGLOBIN 30.4 pg (29.0-35.0); MEAN PLATELET VOLUME 10.4 fL (7.4-10.4); PLATELET COUNT 173 X 10^3uL (130-440); RED BLOOD COUNT 4.72 X 10^6uL (4.20-6.10); WHITE BLOOD COUNT 8.5 X 10^3uL (3.9-10.7)
[2017-01-22 13:30] LABS: BLOOD UREA NITROGEN 12 mg/dL (9-20); CALCIUM 8.4 mg/dL (8.4-10.2); CHLORIDE 108 mmol/L (98-107); CREATININE 0.9 mg/dL (0.7-1.3); EST GLOMERULAR FILTRATION RATE > 60 mL/min; GLUCOSE 133 mg/dL (70-100); POTASSIUM 3.6 mmol/L (3.5-5.1); SODIUM 140 mmol/L (137-145)
[2017-01-22 13:57] LABS: BAND% (Manual) 2 % (0.0-1.0); BASOPHIL % (Manual) 1 % (0.0-2.0); EOSINOPHIL % (Manual) 5 % (0.0-6.0); LYMPHOCYTE % (Manual) 5 % (20.0-40.0); MONOCYTE % (Manual) 9 % (2.0-10.0); NEUTROPHIL % (Manual) 78 % (54.0-75.0)
[2017-01-22 14:00] LABS: PLATELET ESTIMATE ADEQUATE
--- NOTE | 2017-01-22 20:54 | PPLC DISCHARGE SUMMARY ---
DATE OF ADMISSION: 01/20/17 DATE OF DISCHARGE: 01/22/17 ATTENDING PHYSICIAN: Tha Morales MD DIAGNOSES 1. Urosepsis secondary to E. Coli. 2. Urinary retention. HISTORY OF PRESENT ILLNESS: Patient is a 76 year-old male who presented to the Emergency Room with a 1-day history of urinary tract symptoms consisting of dysuria, urinary frequency, nocturia that has increased from twice a night to 4 times per night, urgency, hesitancy, fevers, chills and dizziness. The morning of admission, he felt quite weak trying to get out of bed and was noted to be quite confused according to his . No flank pain or abdominal pain. No nausea , vomiting, diarrhea, constipation, melena, hematochezia or cardiopulmonary symptoms. Please see previously dictated history and physical for further details. HOSPITAL COURSE: The patient was admitted with urosepsis, with a temperature of 99.6, WBC 23.9 with machine differential 90.7% neutrophils, 2.7% lymphocytes, urinalysis positive for nitrates and 1+ leukocyte esterase, although micro was negative. Patient was confused in the Emergency Room. He was hydrated with intravenous normal saline, and was started on Zosyn 3.375 grams IV q.6 hours. Blood cultures were negative. Urine cultures grew out E. Coli sensitive to all antibiotics. Over the next 2 days, white blood cell count dropped into the normal range. Confusion resolved, and overall he was feeling dramatically improved. Last night, he was noted to have urinary retention with postvoid residual greater than 500 mL on 2 separate occasions. This prompted placement of a Holguin catheter. Urinary retention may have certainly led to his urosepsis. Throughout this stay, patient had no flank or suprapubic pain on exam. DISCHARGE INSTRUCTIONS: Patient may participate in activities as able. He is on a cardiac diet. He has a follow up appointment with Dr. Morales next week . He will have a follow up appointment with Dr. Alicia in approximately 10 days. Patient will remove his Holguin 6 hours prior to seeing Dr. Alicia so that Dr. Alicia can check for a postvoid residual. Did speak with the patient and his about the possible need of self straight caths, TUMT, TURP, etc. We will defer to Dr. Alicia as to what the best strategy will be for this patient. DISCHARGE MEDICATIONS Bactrim DS 1 tab p.o. b.i.d. x10 days. Start Finasteride 5mg p.o. daily #30, 1 year refill. Continue Tamsulosin 0.4 mg 2 tabs p.o. daily. Aspirin 81 mg p.o. daily. Zolpidem 5 mg p.o. q.h.s. Ibuprofen 200 mg p.o. q.i.d. with food. Namenda XR 28 mg p.o. daily. Pataday ophthalmic 1 GTT OU daily. Multivitamins 1 tab p.o. daily. Vitamin B6 50 mg p.o. daily. Copies to: Dr. Ravin STINSON
== END 2017-01-22 15:13 | disposition home or self-care (01) | DRG 948 ==
LOC: ER 09:19 → IN 11:38
PROVIDERS: ADMIT Family Medicine; ATTEND Family Medicine
DX: R41.82 Altered mental status, unspecified (principal); N39.0 Urinary tract infection, site not specified; B96.20 Unspecified Escherichia coli [E. coli] as the cause of diseases classified elsewhere; I25.10 Atherosclerotic heart disease of native coronary artery without angina pectoris; E78.5 Hyperlipidemia, unspecified; F03.90 Unspecified dementia, unspecified severity, without behavioral disturbance, psychotic disturbance, mood disturbance, and anxiety; N40.1 Benign prostatic hyperplasia with lower urinary tract symptoms; E66.9 Obesity, unspecified; M72.0 Palmar fascial fibromatosis [Dupuytren]; Z86.010 Personal history of colon polyps; Z79.899 Other long term (current) drug therapy; Z74.3 Need for continuous supervision
CPT/HCPCS: 36415; 71010; 80048; 80076; 81001; 83605; 83880; 85007; 85025; 85027; 87040; 87077; 87086; 87186; 96361; 96365; 99285; A0425; A0427; J2543; J7030

== ENCOUNTER 2017-01-26 15:57 | Emergency (ER) | payer MEDICARE, OTHER ==
[2017-01-26 16:17] LABS: URINE MUCUS NONE SEEN (Up to 25%)
[2017-01-26 16:29] LABS: URINE APPEARANCE CLOUDY; URINE COLOR RED; URINE LEUKOCYTE ESTERASE NEGATIVE (NEGATIVE); URINE NITRITE NEGATIVE (NEGATIVE); URINE PH 5.5 (5-7); URINE PROTEIN 300mg/dL (3+) (NEG - TRACE); URINE SPECIFIC GRAVITY > OR = 1.030 (0.001-1.035)
[2017-01-26 16:30] LABS: URINE BILIRUBIN 0.5 mg/100ml (1+) (NEGATIVE); URINE BLOOD 250 Ery/uL (3+) (NEGATIVE); URINE GLUCOSE NORMAL (NEGATIVE); URINE KETONE 5mg/dL (NEGATIVE); URINE UROBILINOGEN NORMAL (NEG-1mg/dL)
[2017-01-26 16:37] LABS: URINE BACTERIA <10 ORGANISMS/hpf (<10/hpf)
[2017-01-26] MEDS ORDERED: LIDOCAINE HCL 2% JELLY 1 APP/5 ML TUBE ONE (17:21)
[2017-01-26] MEDS ORDERED: LIDOCAINE HCL 2% URO-JET 5 ML JEL.PF.APP MUCOUS MEM ONE (17:29)
--- NOTE | 2017-01-26 17:37 | ER PHYSICIAN DOCUMENTATION ---
Physician Documentation [facility] Name:Donaldo Walden Age:76 yrs Sex:Male :1940 Arrival Date:01/26/2017 Time:15:57 Bed4 Private MD:Tha Morales ED, John Disposition: 01/26/17 17:16 Discharged to Home/Self Care. Impression: Hematuria, Gross. - Condition is Good. - Discharge Instructions: blood in urine - HEMATURIA. - Medical Reconciliation form form. - Follow up: Tha Morales MD; When: 2 - 3 days; Reason: Continuance of care. - Problem is new. - Symptoms have improved. - Notes: For penis pain relief 1. Wipe down the excess tubing w alcohol wipe 2. Lube up excess tube w lidocaine jelly. 3. Slide tube up the penis. HPI: 01/26 16:50 This 76 yrs old Male presents to ER via Private Vehicle with complaints of jm Urinary Problem. 16:50 This 76 yrs old Male presents to ER via Private Vehicle with complaints of jm Urinary Problem. 16:50 The patient presents with urinary symptoms, hematuria . Onset: The symptom(s)/episode jm began/occurred today. Modifying factors: the symptoms are aggravated by nothing. Associated signs and symptoms: Pertinent positives: dysuria, Pertinent negatives: abdominal pain, fever. Severity of symptoms: in the emergency department the symptoms are unchanged. The patient has not experienced similar symptoms in the past. The patient has recently been admitted at [facility], by Dr. DARLING- for Urosepsis- Pt was DC'd a few days ago and placed on Bactrim. He has been fiddling w the catheter, thinking that it needs to go all the way up his urethra, so its been sliding up and down and now he has blood in bag and pain at his urethral tip. . Historical: - Allergies: pravastatin; NSAIDS; - Home Meds: 1. Namenda XR 28 mg oral CSpX 1 cap once daily 2. fluocinolone 0.025 % topical oint 2 times per day for Skin Rash 3. tamsulosin 0.4 mg oral cp24 2 caps once daily 1/2 hour following the same meal each day 4. Ambien 5 mg oral tab 1 tab once daily for Sleep-Onset Insomnia 5. fluticasone propionate 6. multivitamin with minerals oral tab 7. ibuprofen 200 mg oral cap 1 cap every 4-6 hours as needed 8. pataday 9. Vitamin B-6 50 mg oral cap 10. calcium carbonate 600 mg oral lozg 11. Fish Oil oral cap 12. aspirin 81 mg oral tab 1 tab once daily - PMHx: erectile dysfunction; BPH; HERNIA; CAD; DEMENTIA; OBESITY; shoulder pain; colon polyps; nonallergic rhinitis; hyperlipidemia; Urosepsis (January 20, 2017); - PSHx: Ventral Hernia repair; left knee arthroscopy; - Ebola Screening: : Patient negative for fever greater than or equal to 101.5 degrees Fahrenheit, and additional compatible Ebola Virus Disease symptoms. Patient denies exposure to infectious person. Patient denies travel to an Ebola-affected area in the 21 days before illness onset. No symptoms or risks identified at this time. . - Immunization history: Pneumococcal vaccine is up to date, Flu Vaccine < 1 year. - Social history: Smoking status: Patient states former smoker of tobacco. Patient/guardian denies using alcohol, street drugs, IV drugs, marijuana. ROS: 17:11 Constitutional: Negative for fever. jm 17:11 Abdomen/GI: Negative for abdominal pain. 17:11 : Positive for hematuria, penile pain, Negative for flank pain. Exam: 17:12 Constitutional: The patient appears alert, awake. jm 17:12 Cardiovascular: Rate: normal, Rhythm: regular. 17:12 : CVA tenderness, is absent, Male external genitalia: normal, Bladder: is normal. Vital Signs: 16:20 BP 123 / 78; Pulse 63; Resp 16; Temp 97.8; Pulse Ox 93% on R/A; sc1 MDM: 16:22 Patient medically screened. 17:12 Differential diagnosis: UTI. Data reviewed: vital signs, nurses notes, old medical jm records, and as a result, I will discharge patient. Counseling: I had a detailed discussion with the patient and/or guardian regarding: the historical points, exam findings, and any diagnostic results supporting the discharge/admit diagnosis, the need for outpatient follow up, with the patient's primary care provider, a urologist. ED course: No bacteria, but pt does have hematuria and penial pain. I suspect a small urethral tear given that he has pain at his penis tip. I will tell pt to use some lidocaine jelly on the tube and slide the Holguin up after he cleans the tube w alcohol. . 01/26 16:41 Order name: UA W/ MICRO -CULTURE IF IND; Complete Time: 16:47 EDMS 01/27 07:20 Order name: URINE CULTURE EDMS Dispensed Medications: 17:20 Drug: Urojet - Lidocaine Viscous Gel 2 % 1 application; Route: Mucous Membrane; [facility] [place] 17:33 Follow up: Response: No adverse reaction; Pain is decreased [facility] [place] 17:20 Drug: Lidocaine Ointment (2%) 1 inches; Route: Topical; Site: affected area; [facility] [place] 17:34 Follow up: Response: No adverse reaction; No change in condition [facility] [place] 17:33 Drug: Urojet - Lidocaine Viscous Gel 2 % 4 application; Route: Mucous Membrane; [facility] [place] 17:34 Follow up: Response: dispensed one for home. [facility] [place] Signatures: Sheridan Uriarte RN RN or1 Rolando Denney MD MD
--- NOTE | 2017-01-26 17:37 | ER NURSING DOCUMENTATION ---
Nurse's Notes [facility] Name:Donaldo Walden Age:76 yrs Sex:Male :1940 Arrival Date:01/26/2017 Time:15:57 Bed4 Private MD:Tha Morales Diagnosis:Hematuria, Gross Presentation: 01/26 16:01 Acuity: KYLIE 3 sc1 16:09 Notified ED Physician of Олег Sheikh notified. ga1 16:11 Presenting complaint: Patient states: Pt. has a lambert cath that was inserted this past sc1 Wednesday for urinary retention. States he noticed urine getting darker yesterday and today it looks like coca cola. Transition of care: Home. 16:11 Method Of Arrival: Private Vehicle ga1 Triage Assessment: 16:20 General: Appears in no apparent distress, well developed, well nourished, well groomed, ga1 Behavior is cooperative, pleasant. Pain: Denies pain. Historical: - Allergies: pravastatin; NSAIDS; - Home Meds: 1. Namenda XR 28 mg oral CSpX 1 cap once daily 2. fluocinolone 0.025 % topical oint 2 times per day for Skin Rash 3. tamsulosin 0.4 mg oral cp24 2 caps once daily 1/2 hour following the same meal each day 4. Ambien 5 mg oral tab 1 tab once daily for Sleep-Onset Insomnia 5. fluticasone propionate 6. multivitamin with minerals oral tab 7. ibuprofen 200 mg oral cap 1 cap every 4-6 hours as needed 8. pataday 9. Vitamin B-6 50 mg oral cap 10. calcium carbonate 600 mg oral lozg 11. Fish Oil oral cap 12. aspirin 81 mg oral tab 1 tab once daily - PMHx: erectile dysfunction; BPH; HERNIA; CAD; DEMENTIA; OBESITY; shoulder pain; colon polyps; nonallergic rhinitis; hyperlipidemia; Urosepsis (January 20, 2017); - PSHx: Ventral Hernia repair; left knee arthroscopy; - Ebola Screening: : Patient negative for fever greater than or equal to 101.5 degrees Fahrenheit, and additional compatible Ebola Virus Disease symptoms. Patient denies exposure to infectious person. Patient denies travel to an Ebola-affected area in the 21 days before illness onset. No symptoms or risks identified at this time. . - Immunization history: Pneumococcal vaccine is up to date, Flu Vaccine < 1 year. - Social history: Smoking status: Patient states former smoker of tobacco. Patient/guardian denies using alcohol, street drugs, IV drugs, marijuana. Screenin:35 Infectious Disease Risk None. Abuse screen: Denies threats or abuse. Nutritional sc1 screening: No deficits noted. Vital Signs: 16:20 BP 123 / 78; Pulse 63; Resp 16; Temp 97.8; Pulse Ox 93% on R/A; ga1 ED Course: 15:59 Patient arrived in ED. ds 15:59 Tha Morales MD is Private Physician. ds 16:00 Sheridan Uriarte RN is Primary Nurse. [facility] [place], [place] 16:01 Triage completed. [facility] [place], [place] 16:21 Notified ED Physician of patient's arrival and chief complaint. Dr. Denney notified. Arm sc1 band placed on Bed in low position Call Light in Reach HOB Elevated. Urine obtained. 16:22 Rolando Denney MD is Attending Physician. 17:14 Tha Morales MD is Referral Physician. 17:35 Valuables Remains with patient. ga1 Administered Medications: 17:20 Drug: Urojet - Lidocaine Viscous Gel 2 % 1 application; Route: Mucous Membrane; [facility] [place] [place] 17:33 Follow up: Response: No adverse reaction; Pain is decreased [facility] [place] [place] 17:20 Drug: Lidocaine Ointment (2%) 1 inches; Route: Topical; Site: affected area; [facility] [place], [place] 17:34 Follow up: Response: No adverse reaction; No change in condition [facility] [place] [place] 17:33 Drug: Urojet - Lidocaine Viscous Gel 2 % 4 application; Route: Mucous Membrane; [facility] [place] [place] 17:34 Follow up: Response: dispensed one for home. [facility] [place] [place] Outcome: 17:16 Discharge ordered by . 17:35 Discharged to home ambulatory. [facility] [place], [place] 17:35 Condition: improved 17:35 Discharge instructions given to patient, Instructed on discharge instructions, follow up and referral plans. medication usage, Demonstrated understanding of instructions, medications. 17:36 Patient left the ED. [facility] [place], [place] Signatures: Sheridan Uriarte RN RN ga1 Srot, Liseth, Reg Reg ds Rolando Denney MD MD jm
== END 2017-01-26 17:37 | disposition home or self-care (01) ==
LOC: ER 15:57
DX: T83.84XA Pain due to genitourinary prosthetic devices, implants and grafts, initial encounter (principal); R31.9 Hematuria, unspecified; N48.89 Other specified disorders of penis; N40.1 Benign prostatic hyperplasia with lower urinary tract symptoms; R33.9 Retention of urine, unspecified; I25.10 Atherosclerotic heart disease of native coronary artery without angina pectoris; Z79.899 Other long term (current) drug therapy; Z79.82 Long term (current) use of aspirin
CPT/HCPCS: 81001; 87086; 99283